=== PATIENT | female | born 1995 | race Caucasian/White ===

== ENCOUNTER → 2017-03-01 | Outpatient (CLI) | payer BC, OTHER ==
[~2017-03-01] MED LIST: BUPR8MIS SL; CLON1TAB3 PO; SERT50TA PO
== END | disposition home or self-care (01) ==
LOC: C.PAPS 15:47
PROVIDERS: ATTEND Obstetrics & Gynecology
DX: O99.321 Drug use complicating pregnancy, first trimester (principal); Z3A.00 Weeks of gestation of pregnancy not specified

== ENCOUNTER → 2017-03-01 | Outpatient (CLI) | payer BC, OTHER ==
[2017-03-01 15:07] LABS: BASO % 0.3 %; BASO ABS # 0.02 K/uL (0-0.2); COMPLETE YES; EOS % 1.8 %; HEMATOCRIT 38.8 % (37-47); IG% 0.2 %; LYMPH % 26.6 %; LYMPH ABS # 1.59 K/uL (1.2-3.4); MEAN CELL VOLUME 91.5 fL (80-100); MEAN CORPUSCULAR HEMOGLOBIN 30.4 pg (25-34); MEAN CORPUSCULAR HGB CONC 33.2 g/dl (32-36); MEAN PLATELET VOLUME 11.2 fL (7.4-10.4); MONO % 6.4 %; NEUT % 64.7 %; PLATELET COUNT 237 K/uL (130-400); RED BLOOD COUNT 4.24 M/uL (4.2-5.4); WHITE BLOOD COUNT 5.97 K/uL (4.8-10.8)
[2017-03-01 18:14] LABS: URINE APPEARANCE TURBID (CLEAR); URINE BILIRUBIN NEG (NEG); URINE COLOR DK YELLOW; URINE EPITHELIAL CELL AUTO >30 /lpf (0-5); URINE NITRITE POS (NEG); URINE PH 5.5 (4.5-7.5); URINE SPECIFIC GRAVITY 1.019 (1.000-1.030); UROBILINOGEN NEG (NEG)
[2017-03-01 18:17] LABS: MANUAL MICROSCOPIC REQUIRED? NO; REVIEW REQ? NO
[2017-03-04 03:15] LABS: CHLAMYDIA TRACH RNA*** NOT DETECTED (NOT DETECTED); GC (NEIS GONORRHOEAE)RNA** NOT DETECTED (NOT DETECTED)
== END | disposition home or self-care (01) ==
LOC: C.LAB1850 12:36
PROVIDERS: ATTEND Obstetrics & Gynecology
DX: O99.321 Drug use complicating pregnancy, first trimester (principal); Z3A.00 Weeks of gestation of pregnancy not specified

== ENCOUNTER → 2017-05-12 | Outpatient (CLI) | payer BC, OTHER ==
[2017-05-12 17:41] LABS: PREG INTERNAL NEGATIVE QC NEG CLEAR BACKGROUND; PREG INTERNAL POSITIVE QC POS CONTROL LINE
[2017-05-12 18:07] LABS: ALKALINE PHOSPHATASE 80 U/L (45-117); ALT/SGPT 34 U/L (12-78); AST/SGOT 36 U/L (15-37)
[2017-05-12 19:34] LABS: BASO % 0.1 %; BASO ABS # 0.02 K/uL (0-0.2); COMPLETE YES; EOS % 0.1 %; HEMATOCRIT 34.7 % (37-47); IG% 0.2 %; LYMPH % 10.1 %; LYMPH ABS # 1.52 K/uL (1.2-3.4); MEAN CELL VOLUME 91.3 fL (80-100); MEAN CORPUSCULAR HEMOGLOBIN 30.5 pg (25-34); MEAN CORPUSCULAR HGB CONC 33.4 g/dl (32-36); MEAN PLATELET VOLUME 10.1 fL (7.4-10.4); MONO % 4.3 %; NEUT % 85.2 %; PLATELET COUNT 310 K/uL (130-400)
== END | disposition home or self-care (01) ==
LOC: C.LABPVFM 12:14
PROVIDERS: ATTEND Family Medicine
DX: F11.20 Opioid dependence, uncomplicated (principal)

== ENCOUNTER 2017-08-11 19:21 | Emergency (ER) | payer BC, OTHER ==
[~2017-08-11] VITALS: Ht 165.1 cm; Wt 72.6 kg
[2017-08-11 19:31] VITALS: TEMP 36.3; Ht 165.1 cm; Wt 72.6 kg
[2017-08-11] MEDS ORDERED: ACETAMINOPHEN 500 MG TAB PO STA (19:54)
[2017-08-11 20:40] LABS: BASO % 0.1 %; BASO ABS # 0.01 K/uL (0-0.2); EOS % 1.1 %; EOS ABS # 0.08 K/uL (0-0.5); HEMATOCRIT 32.2 % (37-47); HEMOGLOBIN 10.8 g/dL (12.0-16.0); IG# 0.02 K/uL (0.00-0.02); LYMPH ABS # 2.14 K/uL (1.2-3.4); MEAN CELL VOLUME 90.4 fL (80-100); MEAN CORPUSCULAR HEMOGLOBIN 30.3 pg (25-34); MEAN CORPUSCULAR HGB CONC 33.5 g/dl (32-36); MONO % 6.5 %; MONO ABS # 0.48 K/uL (0.11-0.59); NEUT ABS # 4.66 K/uL (1.4-6.5); PLATELET COUNT 220 K/uL (130-400); RED CELL DISTRIBUTION WIDTH CV 12.9 % (11.5-14.5); RED CELL DISTRIBUTION WIDTH SD 42.6 fL (36.4-46.3); WHITE BLOOD COUNT 7.39 K/uL (4.8-10.8)
[2017-08-11] MEDS ORDERED: BUPRTAB PO (20:50)
[2017-08-11] MEDS ORDERED: PRENTAB26 PO (20:50)
[2017-08-11 20:55] VITALS: O2SAT 98
[2017-08-11 21:10] LABS: ALBUMIN 2.5 gm/dl (3.4-5.0); ALT/SGPT 21 U/L (12-78); BLOOD UREA NITROGEN 5 mg/dl (7-18); CALCIUM 8.4 mg/dl (8.5-10.1); CARBON DIOXIDE 22 mmol/L (21-32); GLUCOSE 87 mg/dl (70-99); LIPASE 64 U/L (73-393); POTASSIUM 3.3 mmol/L (3.5-5.1); SODIUM 136 mmol/L (136-145)
[2017-08-11 21:13] LABS: ALKALINE PHOSPHATASE 166 U/L (45-117); AST/SGOT 19 U/L (15-37); TOTAL PROTEIN 6.5 gm/dl (6.4-8.2)
[2017-08-11] MEDS ORDERED: CEPH500C PO (22:20)
[2017-08-11 22:22] VITALS: BP 124/74; PULSE 83
[2017-08-11] MEDS ORDERED: CEPHALEXIN MONOHYDRATE 250 MG CAP PO ONE (22:30)
--- NOTE | 2017-08-11 22:37 | EMERGENCY ROOM VISIT NOTE ---
History Report prepared by Amanda: Alka Larkin Under the Supervision of: Dr. Johan Solis D.O. First contact with patient: 19:37 Chief Complaint: BACK PAIN Stated Complaint: LOW BACK PAIN/LEG PAIN History of Present Illness The patient is a 22 year old female who presents to the Emergency Room with complaints of constant lower back pain starting a couple hours ago. The patient called a nurse who recommended she come to the ED. The pain started gradually and has been constant. The pain is located in her tailbone and goes down the front of both of her legs. She has some tingling in her legs. The pain does not improve with sitting up. She has some relief with lying down. She is starting to have a sore throat. She denies any fever, abdominal pain, urinary symptoms, vaginal bleeding, groin numbness, weakness, cough, rhinorrhea, chest pain, or SOB. She is having normal bowel movements. Her last BM was this morning. She is currently 33 weeks and 1 day . This is her first . She denies any medical problems besides depression and anxiety. She denies any history of cancer. She denies any drug or alcohol use. Source of History: patient Onset: couple hours ago Position: back (lower) Quality: other (pain) Timing: constant Associated Symptoms: + sorethroat, No fevers, No cough, No chest pain, No SOB, No abdominal pain, No urinary symptoms, No weakness, No numbness Note: Pt denies vaginal bleeding, rhinorrhea. Review of Systems See HPI for pertinent positives & negatives. A total of 10 systems reviewed and were otherwise negative. Past Medical & Surgical Medical Problems: (1) Anxiety (2) Depression Family History No pertinent family history stated. Social History Smoking Status: Current Every Day Smoker Alcohol Use: none Drug Use: none Current/Historical Medications Scheduled Bupropion Hcl (Wellbutrin Xl), 150 MG PO HS Cephalexin Monohydrate (Keflex), 500 MG PO TID Multivit/Min/Iron/Fol Ac/Pren ( Vitamin), 1 TAB PO DAILY Sertraline Hcl (Zoloft), 50 MG PO DAILY Allergies Coded Allergies: Fish (Verified Allergy, Intermediate, TONGUE AND THROAT NUMBNESS, 04/26/15) BEE STING (Unverified Allergy, Unknown, ?, 04/26/15) Physical Exam Vital Signs Date Time Temp Pulse Resp B/P (MAP) Pulse Ox O2 Delivery O2 Flow Rate FiO2 08/11/17 22:22 83 124/74 08/11/17 20:55 78 16 113/77 98 Room Air 08/11/17 19:31 36.3 70 16 122/78 99 Room Air Physical Exam GENERAL: Sitting up in bed, alert, well appearing, well nourished, no distress, non-toxic EYE EXAM: normal conjunctiva. OROPHARYNX: no exudate, no erythema, lips, buccal mucosa, and tongue normal and mucous membranes are moist NECK: supple, no nuchal rigidity, no adenopathy, non-tender LUNGS: Clear to auscultation. Normal chest wall mechanics HEART: no murmurs, S1 normal and S2 normal ABDOMEN: gravid uterus above umbilicus, non-tender, normo-active bowel sounds, no masses, no rebound or guarding. BACK: Back is symmetrical on inspection and there is no deformity, no midline tenderness, no CVA tenderness. Acute reproducible tenderness to the lower lumbar paraspinal region tracking into the coccyx and bilateral gluteus muscles. SKIN: no rashes and no bruising UPPER EXTREMITIES: upper extremities are grossly normal. LOWER EXTREMITIES: No pitting edema. Flexion extension of hip, knee, ankle, and EHL 5/5 bilaterally. Gross sensation intact. DP 2/4. Able to walk on heels and toes. NEURO EXAM: Normal sensorium, cranial nerves II-XII grossly intact, normal speech, no gross weakness of arms, no gross weakness of legs. Bedside ultrasound: IUP, heart rate 125, moving all extremities. Medical Decision & Procedures Laboratory Results 08/11/17 20:27 Red Blood Count 3.56, Mean Corpuscular Volume 90.4, Mean Corpuscular Hemoglobin 30.3, Mean Corpuscular Hemoglobin Concent 33.5, Mean Platelet Volume 10.0, Neutrophils (%) (Auto) 63.0, Lymphocytes (%) (Auto) 29.0, Monocytes (%) (Auto) 6.5, Eosinophils (%) (Auto) 1.1, Basophils (%) (Auto) 0.1, Neutrophils # (Auto) 4.66, Lymphocytes # (Auto) 2.14, Monocytes # (Auto) 0.48, Eosinophils # (Auto) 0.08, Basophils # (Auto) 0.01 08/11/17 20:27 Test 08/11/17 20:25 08/11/17 20:27 Urine Color DK YELLOW Urine Appearance CLOUDY (CLEAR) Urine pH 5.5 (4.5-7.5) Urine Specific [place] 1.022 (1.000-1.030) Urine Protein NEG (NEG) Urine Glucose (UA) NEG (NEG) Urine Ketones NEG (NEG) Urine Occult Blood NEG (NEG) Urine Nitrite NEG (NEG) Urine Bilirubin NEG (NEG) Urine Urobilinogen NEG (NEG) Urine Leukocyte Esterase SMALL (NEG) Urine WBC (Auto) 10-30 /hpf (0-5) Urine RBC (Auto) 0-4 /hpf (0-4) Urine Hyaline Casts (Auto) 0 /lpf (0-5) Urine Epithelial Cells (Auto) >30 /lpf (0-5) Urine Bacteria (Auto) 1+ (NEG) Urine Pathogenic Casts /lpf (0) Urine Test POS (NEG) White Blood Count 7.39 K/uL (4.8-10.8) Red Blood Count 3.56 M/uL (4.2-5.4) Hemoglobin 10.8 g/dL (12.0-16.0) Hematocrit 32.2 % (37-47) Mean Corpuscular Volume 90.4 fL (80-100) Mean Corpuscular Hemoglobin 30.3 pg (25-34) Mean Corpuscular Hemoglobin Concent 33.5 g/dl (32-36) Platelet Count 220 K/uL (130-400) Mean Platelet Volume 10.0 fL (7.4-10.4) Neutrophils (%) (Auto) 63.0 % Lymphocytes (%) (Auto) 29.0 % Monocytes (%) (Auto) 6.5 % Eosinophils (%) (Auto) 1.1 % Basophils (%) (Auto) 0.1 % Neutrophils # (Auto) 4.66 K/uL (1.4-6.5) Lymphocytes # (Auto) 2.14 K/uL (1.2-3.4) Monocytes # (Auto) 0.48 K/uL (0.11-0.59) Eosinophils # (Auto) 0.08 K/uL (0-0.5) Basophils # (Auto) 0.01 K/uL (0-0.2) RDW Standard Deviation 42.6 fL (36.4-46.3) RDW Coefficient of Variation 12.9 % (11.5-14.5) Immature Granulocyte % (Auto) 0.3 % Immature Granulocyte # (Auto) 0.02 K/uL (0.00-0.02) Anion Gap 10.0 mmol/L (3-11) Est Creatinine Clear Calc Drug Dose 220.2 ml/min Estimated GFR () > 150.0 Estimated GFR (Non- 147.8 BUN/Creatinine Ratio 11.6 (10-20) Calcium Level 8.4 mg/dl (8.5-10.1) Total Bilirubin 0.2 mg/dl (0.2-1) Direct Bilirubin < 0.1 mg/dl (0-0.2) Aspartate Amino Transf (AST/SGOT) 19 U/L (15-37) Alanine Aminotransferase (ALT/SGPT) 21 U/L (12-78) Alkaline Phosphatase 166 U/L (45-117) Total Protein 6.5 gm/dl (6.4-8.2) Albumin 2.5 gm/dl (3.4-5.0) Lipase 64 U/L (73-393) Laboratory results per my review. Medications Administered Medications (Trade) Dose Ordered Sig/Judith Route Start Time Stop Time Status Last Admin Dose Admin Acetaminophen (Tylenol Tab) 1,000 mg NOW STAT PO 08/11/17 19:54 08/11/17 19:55 DC 08/11/17 20:11 1,000 MG Cephalexin Monohydrate (Keflex Cap) 500 mg NOW ONCE PO 08/11/17 22:30 08/11/17 22:31 DC 08/11/17 22:25 500 MG ED Course ED COURSE: Vital signs were reviewed and showed normal vitals. The patients medical record was reviewed The above diagnostic studies were performed and reviewed. ED treatments and interventions as stated above. 0: The patient was evaluated in room A9B. A complete history and physical examination was performed. 1953: Acetaminophen 1000 mg PO. 2119: I reevaluated the patient. She is feeling much better. Her pain is down to a 5/10. She does not have any pain down her legs. 2214: I discussed the patient's case with Olvin Steel Clinical Faculty. The patient will go to L&D. 2216: Upon reevaluation, the patient is resting comfortably. I discussed my findings with the patient and she understands and agrees with the treatment plan. Based on the patients age, coexisting illnesses, exam and lab findings the decision to treat as an inpatient was made. The patient will be going to L&D. The patient remained stable while under my care. The patient appeared well at the time of disposition. 2229: Keflex Cap 500 mg PO. Medical Decision Differential diagnoses includes but is not limited to labor, lumbar radiculopathy, muscle strain, facture, cauda equina, mass, and disc herniation. Patient is a 22-year-old female at 33 weeks and 1 day and presents to the ER for lower back pain radiating down bilateral legs. She notes initially it was coming going slightly. Now has been constant. On my exam she is completely neurologically intact. No signs of cauda equina. No numbness in the groin. Able to move her bowels. Able to urinate. No IV drug use, fevers, recent surgeries, trauma, or history of cancer. Her back pain is not reproducible but it is worse with twisting turning and bending. Bedside ultrasound shows IUP moving all extremities with a heart rate in the 120s. Labs were obtained. CBC was unremarkable. BMP shows mild hypokalemia. Bilirubin LFTs all lipase is unremarkable. UA has +1 anterior. As she is to treat with Keflex for asymptomatic bacteriuria. Will not image the back as she is at this time. Received Tylenol and she did feel better. Did discuss with OB as she is 33 weeks and 1 day for possible brief period of monitoring although I do feel as though this is likely muscle skeletal. They were agreeable. Patient was transferred upstairs to OB. Discussed with Pt concerning signs and symptoms to watch out for. Pt was instructed to follow up with their PCP and discussed with the patient their option to return to the ED at anytime for persistent or worsening symptoms. The appropriate anticipatory guidance and out-patient management, including indications for return to the emergency department, were explained at length to the patient and understood. Medication Reconcilliation Current Medication List: was personally reviewed by me Blood Pressure Screening Patient's blood pressure: Normal blood pressure Blood pressure disposition: Did not require urgent referral Consults Time Called: 2211 Consulting Physician: Olvin Steel Clinical Faculty Returned Call: [phone] I discussed the patient's case with him. The patient will go to L&D. Impression Primary Impression: Back pain Additional Impression: Hypokalemia Scribe Attestation The scribe's documentation has been prepared under my direction and personally reviewed by me in its entirety. I confirm that the note above accurately reflects all work, treatment, procedures, and medical decision making performed by me. Departure Information Dispostion Other (going to L&D) Prescriptions Cephalexin Monohydrate (Keflex) 500 Mg Cap 500 MG PO TID for 5 Days, #15 CAP Prov: Johan Solis, DO 08/11/17 Referrals No Doctor, Assigned (PCP) Forms HOME CARE DOCUMENTATION FORM, IMPORTANT VISIT INFORMATION Patient Instructions Back Pain - [facility], [facility] Additional Instructions They will take you directly to L&D for a brief period of monitoring. I do favor this is likely musculoskeletal. Any new weakness or numbness in your legs , worsening pain, pain wrapping around into the abdomen or any other concerning signs or symptoms please return to the ER. Please take antibiotic as prescribed for the bacteria in your urine. Problem Qualifiers Primary Impression: Back pain Back pain location: low back pain Chronicity: unspecified Back pain laterality: midline Sciatica presence: unspecified whether sciatica present Qualified Codes: M54.5 - Low back pain
== END 2017-08-11 22:25 | disposition home or self-care (01) ==
LOC: C.EDB 19:22 → C.EDA 22:25
DX: M54.5 Low back pain (principal); E87.6 Hypokalemia; F41.9 Anxiety disorder, unspecified; F32.9 Major depressive disorder, single episode, unspecified; F17.200 Nicotine dependence, unspecified, uncomplicated

== ENCOUNTER 2017-08-11 22:36 | Outpatient (CLI) | payer BC, OTHER ==
[~2017-08-11 22:36] MED LIST changes: +BUPRTAB PO; +CEPH500C PO; +PRENTAB26 PO
== END 2017-08-11 23:48 | disposition home or self-care (01) ==
LOC: C.OPB 22:36 → C.LD 22:36 → C.OPB 23:48
PROVIDERS: ATTEND Obstetrics & Gynecology
DX: O26.899 Other specified pregnancy related conditions, unspecified trimester (principal); Z3A.00 Weeks of gestation of pregnancy not specified